=== PATIENT | male | born 1940 | race Caucasian/White ===

== ENCOUNTER → 2016-11-30 | Outpatient (CLI) | payer MEDICARE, BC ==
[~2016-11-30] MED LIST: ASPIRIN (CHILDR81 MG PO; ATENOLOL25 MG PO; BACTRIM DS1 TAB PO; CELEXA10 MG PO; CITALOPRAM HBR10 MG PO; COLACE100 MG PO; COUMADIN ** IA5 MG PO; DELTASONE20 MG PO; FLONASE 50 MCG/16 GM NOSE; FLUNISOLIDE25 ML NOSE; GLUCOPHAGE500 MG PO; JANUVIA 100 MG100 MG PO; LEVAQUIN750 MG PO; LOPRESSOR25 MG PO; MIRALAX17 GM PO; NAMENDA5 MG PO; NORVASC2.5 MG PO; OXYGEN M-15 NS; PLAVIX75 MG PO; PROTONIX40 MG PO; TYLENOL/COD#31 TAB PO; VITAMIN B-12500 MCG PO; XALATAN2.5 ML OPHTH; ZOCOR40 MG PO; ZYRTEC10 MG PO
== END | disposition disaster alternative care site (69) ==
LOC: GRAD 09:34
DX: J32.2 Chronic ethmoidal sinusitis (principal); K11.6 Mucocele of salivary gland; J34.89 Other specified disorders of nose and nasal sinuses

== ENCOUNTER 2017-02-22 17:15 | Inpatient (IN) | payer MEDICARE, BC ==
[~2017-02-22] VITALS: Ht 170.2 cm; Wt 81.4 kg
--- NOTE | ~2017-02-22 | DS ---
PATIENT'S NAME: ERIK SEARS [facility] AGE: 76 Y [address] ROOM: [place] [address] LOCATION: GPCU ADMIT DATE: 02/22/2017 Discharge Summary DISCHARGE DATE: 03/01/2017 FAMILY PHYSICIAN: Balta Castaneda MD ATTENDING PHYSICIAN: Naun Colby PRIMARY DIAGNOSES: 1. Complicated urinary tract infection, Klebsiella oxytoca. 2. Acute encephalopathy. 3. Coronary artery disease. 4. Right lower quadrant abdominal pain with abnormal CT. 5. Paroxysmal atrial fibrillation, on long-term anticoagulation with warfarin. 6. Diabetes mellitus type 2. 7. Chest pain, noncardiac. 8. Bradycardia. 9. Rash, drug reaction secondary to Januvia. 10. Obstructive sleep apnea. 11. Gastroesophageal reflux disease. OPERATIONS/PROCEDURES: CT scan of the abdomen and pelvis was obtained on 02/22/2017 demonstrating thickening in the ascending colon, nonobstructive adynamic ileus, and a 3.2 cm infrarenal abdominal aortic aneurysm. CT scan of the brain obtained on 02/23/2017 was negative for any acute intracranial process. Lexiscan stress test performed on 02/26/2017 was positive for inducible ischemia. Left heart catheterization performed on 02/27/[address] Martha Salazar negative for any occlusive disease. Colonoscopy performed on 02/27/2017, negative. HISTORY OF PRESENTING ILLNESS/REASON FOR ADMISSION: Please refer to the H and P dictated on 02/22/2017. HOSPITAL COURSE: The patient was admitted to the hospital as noted above with a presumptive diagnosis of fever and encephalopathy. He also presented with a rash and there was preliminary consideration for tick-borne illness. 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 He was treated with doxycycline as well as Levaquin. A variety of diagnostic studies were performed as outlined above. He did have consultation by Gastroenterology and Cardiology. He was recommended to undergo colonoscopy and cardiac stress testing. His cardiac stress test was deemed to be positive and left heart catheterization was also recommended. It was decided to proceed with colonoscopy first and then subsequently left heart catheterization on 02/27/2017. PATIENT'S NAME: ERIK SEARS [facility] AGE: 76 Y [address] ROOM: [place] [address] LOCATION: GPCU ADMIT DATE: 02/22/2017 Discharge Summary DISCHARGE DATE: 03/01/2017 FAMILY PHYSICIAN: Balta Castaneda MD ATTENDING PHYSICIAN: Naun Colby Ultimately, his urine cultures grew Klebsiella. He was maintained on levofloxacin and his condition improved. The remainder of his cardiac workup proceeded without any complications. He is recommended for medical therapy. His medical management was adjusted. Additionally colonoscopy failed to reveal any significant colon pathology and clinical followup was recommended. It was suggested that he could have repeat CT again in 1 month. The patient's anticoagulant was held in anticipation of colonoscopy and left heart catheterization. He was initially bridged with Lovenox, but as his INR resolved, the Lovenox was discontinued. It was felt he could go home on his home dose of warfarin and plan for close clinical follow up with Dr. Castaneda. The rash that he had presented with was felt to have been a drug rash secondary to Januvia. The doxycycline was discontinued and subsequently Moultrie spotted fever serology was negative. By the end of 7th day of his hospital stay, it was felt that he would be stable enough for discharge to home with plans for close clinical followup with Dr. Castaneda as well as well as outpatient followup with Cardiology and event monitor for two weeks. DISCHARGE INSTRUCTIONS: DIET: ADA 2000 calorie per day as tolerated. ACTIVITIES: As tolerated. MEDICATIONS: 1. Amlodipine 2.5 mg p.o. daily. 2. Aspirin 81 mg p.o. daily. 3. Citalopram 10 mg p.o. q.a.m. 4. Fluticasone nasal spray 2 sprays each nostril b.i.d. 5. Latanoprost ophthalmic drops one drop each eye at h.s. 6. Levofloxacin 750 mg p.o. q.h.s. x2 more days. 7. Metoprolol 12.5 mg p.o. b.i.d. 8. Protonix 40 mg p.o. daily. 9. Simvastatin 40 mg p.o. q.h.s. 10. Coumadin 5 mg p.o. q.h.s. 11. Vitamin B12, 500 mg p.o. daily. 12. Oxygen 1 L per nasal cannula at h.s. FOLLOWUP: He will follow up with Dr. Castaneda in 4 days on Sunday. He will have repeat PT and INR on Sunday. He will have a 2-week event monitor placed on the date of discharge. He is going to follow up with his primary mold sprayer Dr. Dai in 2 weeks. PATIENT'S NAME: ERIK SEARS [facility] AGE: 76 Y [address] ROOM: [id number] [place], [place] [address] [facility] ADMIT DATE: 02/22/2017 Discharge Summary DISCHARGE DATE: 03/01/2017 FAMILY PHYSICIAN: Balta Castaneda MD ATTENDING PHYSICIAN: Naun Colby CONDITION ON DISCHARGE: Fair. TIME SPENT: Total time spent on discharge process 45 minutes. SAVI J MD DIONE CHOUDHURY/darcy /[id number] d: 03/02/17 0543 t: 03/15/17 1812, DISCHARGE SUMMARY
--- NOTE | ~2017-02-22 | CON ---
PATIENT'S NAME: ERIK SEARS [facility] AGE: 76 Y [address] ROOM: [place] [address] LOCATION: GPCU ADMIT DATE: 02/22/2017 Consultation DISCHARGE DATE: FAMILY PHYSICIAN: HENRY OWEN MD ATTENDING PHYSICIAN: VIRGINIA MACDONALD REFERRING PHYSICIAN: RUBEN BROWN REASON FOR CONSULTATION: This is a 75-year-old gentleman who was seen for evaluation of anemia. He was scheduled to have colonoscopy but because of his weakness and dizzy spells, he was admitted to the hospital. He has had periods of confusion, disorientation, and lightheadedness. He noticed numbness and tingling in his fingers. There is no history of trauma or bumping his head. He did not have any fall. Denies any seizure-like activity. His CT scan of the head showed some lacunar infarct, which was stable from the previous CT scan. CT of the abdomen and pelvis had showed some thickening of the cecum and ascending colon with adjacent mesenteric inflammatory changes. There is a differential between colonic neoplasm and focal colitis. Therefore, a colonoscopy was suggested. PAST MEDICAL HISTORY: Significant for coronary artery disease, CABG, diabetes mellitus, hypertension, hyperlipidemia, obstructive sleep apnea, arthritis, gastroesophageal reflux disease and headaches. ALLERGIES: TO PENICILLIN, POSSIBILITY OF ALLERGY TO CONTRAST DYE. PAST SURGICAL HISTORY: Cholecystectomy 2010 and kidney stone removal in 2014. REVIEW OF SYSTEM: A 10-point review of system was negative other than mentioned above. PHYSICAL EXAMINATION: GENERAL: Reveals a well-developed, pleasant male, who is in no acute discomfort. HEAD: Normocephalic, atraumatic. NECK: Supple. No lymphadenopathy. CHEST: Clear to palpation, percussion, and auscultation. VITAL SIGNS: Showed blood pressure is 128/62, pulse is 58 per minute, and temperature is 98.8 degrees Fahrenheit. NEUROLOGIC: Cranial nerves II through XII intact. Motor and sensory systems intact. He walks to the bathroom without difficulty with a slight shuffling gait. ABDOMEN: Soft, is nontender. No hepatosplenomegaly. No ascites. PATIENT'S NAME: ERIK SEARS [facility] AGE: 76 Y [address] ROOM: [place] [address] LOCATION: GPCU ADMIT DATE: 02/22/2017 Consultation DISCHARGE DATE: FAMILY PHYSICIAN: HENRY OWEN MD ATTENDING PHYSICIAN: VIRGINIA MACDONALD GENITOURINARY: Bladder is not full. Hypogastrium is not tender. LABORATORY DATA: Showed his pH is 7.48, PO2 of 51, PCO2 of 33. Electrolytes were normal. Chloride 112, creatinine 0.8, BUN 14. Total protein 5.7, albumin 2.6. Hemoglobin 12.9, hematocrit 38.2, and platelet 177. Prothrombin time 28.8 and INR is 2.72. Fibrinogen level is 485. CT scan of the abdomen as mentioned above. ASSESSMENT: This gentleman has a right colonic abnormality. We will go ahead and plan him for a colonoscopy. Preparation was started yesterday. We appreciate sharing care of this patient. MD PIPE KING/darcy /[id number] d: 02/24/17 1336 t: 02/27/17 1514, CONSULTATION REPORT
--- NOTE | ~2017-02-22 | CON ---
PATIENT'S NAME: ERIK BREAUX [facility] AGE: 76 Y [address] ROOM: [place] [address] LOCATION: GPCU ADMIT DATE: 02/22/2017 Consultation DISCHARGE DATE: FAMILY PHYSICIAN: HENRY OWEN MD ATTENDING PHYSICIAN: VIRGINIA MACDONALD REFERRING PHYSICIAN: RUBEN BROWN REFERRING PHYSICIAN: Dr. Solano. REASON FOR CONSULT: Bradycardia. HISTORY OF PRESENT ILLNESS: Mr. Breaux is a pleasant 76-year-old male with, who initially presented to the Emergency Department with complaints of fever and rash. He had been recently started on Januvia. The patient has been on antibiotics and his rash has been subsiding. The patient was noted to have episodes of sinus bradycardia on telemetry and hence Cardiology was consulted. The patient is being also worked up for possible colonoscopy and biopsy. The patient denied any chest pain. No history of shortness of breath. He stated that he goes to gym 3 times a week and does work out for an hour each time without any symptoms. REVIEW OF SYSTEMS: The patient stated that he has mild diminution in vision both eyes. No history of nausea or vomiting. He has occasional diarrhea. No history of constipation. No history of chest pain, palpitations, or shortness of breath on exertion. The patient stated that he had fever along with rash. No history of recent memory loss. Review of other systems is essentially negative. PAST MEDICAL HISTORY: History of congestive heart failure; obstructive sleep apnea on BiPAP; history of ischemic stroke; dementia; coronary artery disease, status post stent placement and coronary artery bypass surgery in 2011; diabetes mellitus; hypertension; paroxysmal atrial fibrillation on long-term anticoagulation; glaucoma; dyslipidemia; and asthma. PAST SURGICAL HISTORY: Coronary artery bypass surgery in 1981 and 2011, cholecystectomy, bilateral cataract surgery, and kidney stone removal in 2014. FAMILY HISTORY: History of cirrhosis of liver and his mother had cancer. No family history of premature coronary artery disease. PATIENT'S NAME: ERIK BREAUX [facility] AGE: 76 Y [address] ROOM: [place] [address] LOCATION: GPCU ADMIT DATE: 02/22/2017 Consultation DISCHARGE DATE: FAMILY PHYSICIAN: HENRY OWEN MD ATTENDING PHYSICIAN: VIRGINIA MACDONALD SOCIAL HISTORY: Nonalcoholic. Nonsmoker. The patient lives with his . MEDICATIONS: Current cardiac medications include: 1. Warfarin. 2. Simvastatin. 3. The patient was on atenolol, which has been discontinued due to bradycardia. 4. Other medications per MAR. PHYSICAL EXAMINATION: VITAL SIGNS: His heart rate is 58 beats per minute, respiratory rate 18, blood pressure 128/62, temperature 98.8. HEENT: His head is atraumatic and normocephalic. No pallor is present. Tongue is moist. NECK: No significant jugular venous distention is present. CARDIOVASCULAR: S1 and S2 are audible. They are irregular in rate and rhythm. Grade 2/6 soft systolic murmur is audible over the precordium. CHEST: Chest is clear to auscultation. ABDOMEN: Abdomen is soft, nontender. The patient noticed mild discomfort on pressing in left lower quadrant. Bowel sounds are present. EXTREMITIES: Showed mild pedal edema bilaterally. NEUROLOGIC: The patient is awake, alert, and oriented. SKIN: The patient has mild erythematous rash over his lower extremities. LABORATORY DATA: Sodium 145, potassium 4.1, chloride 112, CO2 of 23, glucose 163, calcium 8.1, BUN 14, creatinine 0.8, albumin 2.6, magnesium 1.9. ProBNP 1730. TSH 3.4. Free T4 1.2. White blood cell count 12.9, hemoglobin 12.9, platelet count 177. His echocardiogram showed normal left ventricular systolic function. His EKG showed sinus bradycardia with sinus arrhythmia at 56 beats per minute. On reviewing telemetry, the lowest heart rate was noted to be 46 beats per minute. Mostly the heart rate is in 60 to 80 beats per. ASSESSMENT AND PLAN: 1. Bradycardia. The patient's bradycardia is asymptomatic. He is physically active and stated that he goes to the gym 3 times a week and works out for about an hour without any symptoms. The patient had been on atenolol, which was recently discontinued due to bradycardia. We will continue to monitor on telemetry. We will also monitor his heart rate while he is physically active to look for any chronotropic incompetence. His history is not suggestive of any chronotropic incompetence. PATIENT'S NAME: ERIK BREAUX [facility] AGE: 76 Y [address] ROOM: [place] [address] [facility] ADMIT DATE: 02/22/2017 Consultation DISCHARGE DATE: FAMILY PHYSICIAN: HENRY OWEN MD ATTENDING PHYSICIAN: VIRGINIA MACDONALD 2. Coronary artery disease, status post coronary artery bypass graft. Continue statins. Consider addition of aspirin. 3. History of paroxysmal atrial fibrillation. We will continue anticoagulation. The patient is on Coumadin. The Coumadin is going to be held for colonoscopy with heparin bridging. Post colonoscopy, we will reinitiate anticoagulation. 4. Rash, management per hospitalist team. 5. History of abnormal abdominal CT. The patient is being scheduled for colonoscopy. The plan of care was discussed with the patient, his , and his son, the nursing staff, and Dr. Solano, Gastroenterology. Thank you for allowing us in taking part in the care of this pleasant patient. MD GERSON AGGARWAL/darcy /[id number] d: 02/24/17 1404 t: 03/15/17 1723, CONSULTATION REPORT
--- NOTE | ~2017-02-22 | ER ---
PATIENT'S NAME: ERIK SEARS [facility] AGE: 76 Y [address] ROOM: [place] [address] LOCATION: GPCU ADMIT DATE: 02/22/2017 ER/Outpatient Report DISCHARGE DATE: FAMILY PHYSICIAN: HENRY OWEN MD ATTENDING PHYSICIAN: VIRGINIA MACDONALD Time of arrival: 1715 hours. Time of evaluation: 1715 hours. CHIEF COMPLAINT: Fever. HISTORY OF PRESENT ILLNESS: The patient is a 76-year-old male, who presents to emergency department today with a chief complaint of fever and rash. He reports that the fevers started Sunday, but a rash just started yesterday. He showed his family finally today. He was started on some prednisone after he called his primary care doctor. The patient was recently started on Januvia from past 9 days. He has had some loose stools for the past couple days of at least 2 per day. He has also had some generalized weakness and has progressive worsening. Denies any chest pain. No shortness of breath. No abdominal pain. PAST MEDICAL HISTORY: 1. Congestive diastolic heart failure. 2. Obstructive sleep apnea, on BiPAP in 3 L nasal cannula at night. 3. History of ischemic stroke. 4. Dementia. 5. Coronary artery disease with history of stents. 6. CABG. 7. Diabetes mellitus type 2. 8. Hypertension. 9. Asthma. 10. Paroxysmal atrial fibrillation, on long-term anticoagulation. 11. Dyslipidemia. 12. Glaucoma. PAST SURGICAL HISTORY: 1. CABG in 1981. 2. Cardiac stents 1986 and 2004. 3. Cholecystectomy. 4. Bilateral cataracts surgery. 5. Repeat CABG in 2011. 6. Kidney stone removal 2014. FAMILY HISTORY: PATIENT'S NAME: ERIK SEARS [facility] AGE: 76 Y [address] 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 Father and mother with cancer in the pituitary gland. SOCIAL HISTORY: The patient denies any tobacco, alcohol, or illicit drug use. ALLERGIES: SULFA, RED EYE CONTRAST DYE. MEDICATIONS: Please see list. PRIMARY CARE DOCTORS: Dr. Owen. REVIEW OF SYSTEMS: All systems are reviewed by myself and negative with the exception of discussed in HPI and past medical history. PHYSICAL EXAMINATION: VITAL SIGNS: Weight 83.4 kg. Blood pressure 128/66, pulse 108, respiratory rate 16, temperature 101.4, oxygen saturation 92% on room. GENERAL: The patient is a 76-year-old male, who appears stated age. Well developed and well nourished. HEENT: Head: Normocephalic and atraumatic. Pupils are equal, round, and reactive to light. Extraocular motions are intact. Sclerae and conjunctivae are clear, not icteric. Oropharynx is clear. There is no oral lesions noted. Mucous membranes are moist. NECK: Supple. There is no nuchal rigidity. CARDIOVASCULAR: Tachycardic. No murmurs, rubs, or gallops. LUNGS: Clear to auscultation bilaterally. No wheezes, rales, or rhonchi. ABDOMEN: Soft, nontender, and nondistended. No rebound, rigidity, or guarding. MUSCULOSKELETAL: The patient moves all 4 extremities. SKIN: The patient does have area of petechiae and purpuric lesion noted to the bilateral lower extremities up into the inguinal region. There is no other rashes, excoriations, bullae, or raised lesions noted. LABORATORY DATA AND X-RAYS: Labs and x-rays are pending at time of transfer of care. IMPRESSION: 1. Petechial and pruritic rash. 2. Acute febrile illness. 3. Please see Dr. Medrano's dictation. PATIENT'S NAME: ERIK SEARS [facility] AGE: 76 Y [address] ROOM: [id number] [place] [address] LOCATION: GPCU ADMIT DATE: 02/22/2017 ER/Outpatient Report DISCHARGE DATE: FAMILY PHYSICIAN: HENRY OWEN MD ATTENDING PHYSICIAN: VIRGINIA MACDONALD EMERGENCY DEPARTMENT COURSE: The patient brought back to the examination room. Seen and evaluated by myself. IV is established. Laboratory analysis and imaging are obtained and pending at time of transfer of care. The patient is initiated on a liter of normal saline. He is given 1 g of Tylenol. He is also given 125 mg of Solu- Medrol IV. I have discussed the case with Dr. Medrano at shift change. He has assumed care. Please see his dictation for further. DO PINKY MCCALLUM/modl /[id number] d: 02/23/17 1024 t: 02/27/17 0924, OUTPATIENT REPORT
--- NOTE | ~2017-02-22 | HP ---
PATIENT'S NAME: ERIK SEARS [facility] AGE: 76 Y [address] ROOM: [place] [address] [facility] AD[facility] DATE: 02/22/2017 History & Physical DISCHARGE DATE: FAMILY PHYSICIAN: HENRY OWEN MD ATTENDING PHYSICIAN: VIRGINIA MACDONALD DATE OF SERVICE: ADDENDUM: The addendum is that for his on and off confusion after the stroke. I am going to get a head CT of the brain without contrast. I do not think the patient has stroke; however, further plan will depend on clinical course and MRI of the brain could be obtained if necessary. Again, further plan will depend on the clinical course, and on the CT of the brain without contrast finding first. Currently, on my neurologic exam, the patient does not seem to have any evidence of stroke. The patient is oriented x3 right now with me. There is no confusion at the moment based on my examination. The patient does have a history of a vascular dementia consistent with a prior stroke and he is having this wax and wane confusion described by the family member, which at the moment the patient is not having any confusion. Further plan depends on clinical course. MD MAHAMED RIVERS/darcy /[id number] D: 310 T: 635 HISTORY & PHYSICAL
--- NOTE | ~2017-02-22 | ER ---
PATIENT'S NAME: ERIK SEARS [facility] AGE: 76 Y [address] ROOM: [address] [address] [facility] ADMIT DATE: 02/22/2017 ER/Outpatient Report DISCHARGE DATE: FAMILY PHYSICIAN: HENRY OWEN MD ATTENDING PHYSICIAN: VIRGINIA MACDONALD Time of Arrival: Admission date and time documented on the medical record. Time of Evaluation: I saw the patient when I came on shift change at 1815 hours. CHIEF COMPLAINT: Fever and skin rash. HISTORY OF PRESENT ILLNESS: This patient is a 76-year-old male, who presented to the emergency room with generalized weakness, fever, and skin rash. Initially, saw Dr. Araujo. See Dr. Araujo's dictation in regard to this patient's admission. Dr. Araujo transferred the patient's care over to me at shift change. I followed up with the patient's laboratory and x-ray study results, final diagnosis, and treatment plan. The patient's illness started on Sunday. He started with a rash on his lower extremities that moved up to his abdomen and chest. The patient was given Solu-Medrol 125 mg IV here in the emergency room and his rash on his abdomen, chest, and upper extremities resolved. Did have a little bit of pruritus with this rash. Was lightheaded and dizzy, but had no syncope or near syncope. No headache or eyes, ears, nose, throat, neck, or spine pain. No chest pain or shortness of breath. No abdominal pain. Has had a lot of diarrhea. Some nausea, but no vomiting. No joint swelling, redness, or pain. Does have a skin rash. Does have yig-tekkrsx-sfnbqsoqv diabetes. No other endocrine problems. Has a past history of lacunar infarcts, CVA, without sequelae. Does have some dementia. No psych issues. HOME MEDICATIONS: See attached medication list. ALLERGIES: PENICILLIN, SULFA, CONTRAST DYE, RED DYE. SOCIAL HISTORY: Nonsmoker, nondrinker. SIGNIFICANT PAST MEDICAL HISTORY: Atherosclerotic ischemic heart disease with coronary artery disease; non- insulin-dependent diabetes mellitus type 2; obstructive sleep apnea; COPD, asthmatic type; hypertension; nephrolithiasis; cholecystitis; CVA with lacunar infarct; dementia; dyslipidemia; degenerative osteoarthritis; headaches; and PATIENT'S NAME: ERIK SEARS [facility] AGE: 76 Y [address] ROOM: [address] [address] LOCATION: [facility] ADMIT DATE: 02/22/2017 ER/Outpatient Report DISCHARGE DATE: FAMILY PHYSICIAN: HENRY OWEN MD ATTENDING PHYSICIAN: VIRGINIA MACDONALD gastroesophageal reflux. OPERATIONS: Tonsillectomy, esophagogastroduodenoscopy, cataract extraction, coronary artery bypass graft, cardiac catheterization with PTCA and stenting, cholecystectomy, and cystoscopy with ureteral stent and stone extraction. REVIEW OF SYSTEMS: All systems reviewed by me are negative with the exception of those discussed in the history of present illness. PHYSICAL EXAMINATION: VITAL SIGNS: Temperature 101.4, tympanic; pulse 108; respirations 16; blood pressure 128/66; and O2 saturation on room air is 92%. HEAD: Normocephalic. EYES: Extraocular muscles intact. PERRL. Sclerae and conjunctivae clear, nonicteric. EARS, NOSE, AND THROAT: Clear. Mucous membranes moist. NECK: No nuchal rigidity. No thyromegaly or cervical adenopathy. No tenderness. No carotid bruits. SPINE: Negative. LUNGS: Clear. No rales, rhonchi, or wheezes. HEART: Regular. Pulses palpable. When I saw the patient, just the rash had dissipated. He had a little bit rash on his biceps muscle of his right upper arm. Otherwise, no other rash on his trunk, back, chest, upper extremities, face, and neck. NEURO: Cranial nerves intact. No lateralizing signs. The patient is awake, cooperative. Motor and sensory intact. SKIN: The patient has rash on his lower extremities, purpura type of rash. No excoriations. No raised lesions. No vesicles. No bullae. IMAGING DATA: EKG showed sinus rhythm, right bundle. No acute ST elevation, ischemic change, or arrhythmia. Chest x-ray is still pending. LABORATORY DATA: ProBNP was 660. Urine showed 10 to 20 whites, 0 to 2 reds, 0 to 2 epithelial cells, moderate bacteria, 4+ mucus per high-powered field, negative nitrites. Culture pending. Blood cultures x2 drawn, results pending. White count 11,800, 84 segs, 8 bands, 3 lymphs, 2 monos, 2 eos, 1 baso; hemoglobin is 14.8; hematocrit 44.9; platelet count is 181,000. Sed rate was elevated at 38. PTT was 52, protime was 36.2 with an INR of 3.41. CRP was 8.11. Thyroid tests were normal. CMS was normal except for a low CO2 content of 21, elevated glucose 142, CPK was 83. Bvsnt-qb-rxwb cardiac enzymes were normal. Procalcitonin was 1.86. Lactate was 2.4. Venous pH was 7.48. Respiratory PATIENT'S NAME: ERIK SEARS [facility] AGE: 76 Y [address] ROOM: [address] [place], [place] [address] LOCATION: [facility] ADMIT DATE: 02/22/2017 ER/Outpatient Report DISCHARGE DATE: FAMILY PHYSICIAN: HENRY OWEN MD ATTENDING PHYSICIAN: VIRGINIA MACDONALD panel was negative. D-dimer 0.93. Fecal white cells were few. Occult blood negative on stool. EMERGENCY DEPARTMENT COURSE: In view that this patient looks like possible sepsis, we did start the patient on cefepime 2 g IV, vancomycin IV, and Levaquin 750 mg IV here in the emergency room. I did start the patient on aggressive IV normal saline, fluids; gave him a total of 2500 here in the emergency department. He was not in shock, maintained a normal blood pressure. He had no mental status changes. IMPRESSION: 1. Sepsis, etiology uncertain. 2. Nonspecific skin rash, etiology uncertain. 3. Diarrheal illness, etiology uncertain. Culture pending. 4. Tzq-fdmwbwg-ahyareoha diabetes mellitus type 2. 5. Obstructive sleep apnea. 6. Chronic obstructive pulmonary disease, asthmatic type. 7. Hypertension. 8. Atherosclerotic ischemic heart disease with coronary artery disease. 9. Mild dementia. 10. Dyslipidemia. PLAN: Discussed the patient with Dr. Macdonald, hospitalist. Dr. Macdonald is coming to the emergency room to evaluate the patient. We will admit the patient to the hospital for further evaluation. Sepsis start time was 1930 hours. Discussion ensued with the patient and his family regarding my findings and recommendations, they understand. Accumulated critical care time 40 minutes. KRYS JAVIER MD SDS/modl /[id number] d: 02/23/17 0424 t: 02/28/17 1904, OUTPATIENT REPORT
--- NOTE | ~2017-02-22 | ESTC ---
Cardiac Perfusion Imaging Demographics Patient Name ORION Savage Gender Male Patient Number [id number] Race Visit Number [id number] [place] [id number] Room Number G6301 Accession Number [id number] Height 67 inches Date of 1940 Weight 189 pounds Srini Interpreting GURWINDER Robles Date of study 02/26/2017 Physician Carol Thomas MD Supervising /ÁLVAROP Carol OSBORNE Technologist Anitha Milligan Ordering Physician Carol Milligan environmental test technician Stress ECG Reading Carol Nurse Jamel Bhatia Physician Srini Thomas MD Procedure Procedure Type: Nuclear Stress Test:Pharmacological, Lexiscan, Cardiolite Stress Test Procedure Start time: 02/26/2017 08:22 Indications: Shortness of breath. Risk Factors The patient risk factors include:prior PCI;prior CABG;hypercholesterolemia, hypertension, orally-treated diabetes mellitus, prior valve surgery/procedure and dyslipidemia. Conclusions Summary Perfusion Images: The overall quality of the study is fair, due to gastrointestinal tracer uptake. Left ventricular cavity is noted to be normal on the stress and normal on the rest images. There is no evidence of abnormal lung activity. The right ventricle is not visualized an cannot be assessed. Impression ECG portion of the lexiscan stress test is clinically negative for ischemia by diagnostic criteria. Myocardial perfusion imaging is moderately abnormal. The images reveal a partially reversible defect in the basal to mid inferolateral wall consistent with ischemia . TID ratio is 1.15. Overall left ventricular systolic function was normal. The lateral wall is hypokinetic. Calculated LVEF is 62%. This is a intermediate risk stress test. There are no previous studies for comparison . Stress Protocols Resting ECG Sinus rhythm with PACs and PVCs with RBBB Pre-stress physical exam: Patient assessed by Dr Medina prior to testing. Predicted HR: 142 bpm ECG Findings No ECG changes suggestive of ischemia. Arrhythmias Occasional PACs and PVCs Symptoms Mild dyspnea Stress Interpretation ECG portion of stress test is negative for ischemia by diagnostic criteria. Nuclear images are pending Imaging Results Summed scores - Summed stress score: 16 - Summed rest score: 9 - Summed difference score: 7 Stress ejection Ejection fraction:62 % EDV :92 ml ESV :35 ml Stroke volume :57 ml LV mass :139 gr Imaging Protocols Rest Stress Isotope:Tc99m Sestamibi IV Isotope: Tc99m Sestamibi IV Isotope dose:13.4 mCi Isotope dose:41.2 mCi Date:02/26/2017 08:10 Date:02/26/2017 09:25 Technique: SPECT Technique: Gated Supine SPECT Supine IV remains in place after procedure. Scan Time:30 minutes post injection Scan Time:45-60 minutes post injection Procedure Medications - Regadenoson (Lexiscan) 0.4 mg IV over 10-15 sec. I.V. 0.4 mg. Medical History Admission Data Admission date: 02/22/2017 Admission Time: 22:13 Hospital Status: Inpatient. Signatures dtt: EDWIN MITCHELL dtd: 02/26/17 0822 Physician Self Edit
--- NOTE | ~2017-02-22 | CATH ---
Cardiac Diagnostic Report Demographics Patient Name ORION Savage Gender Male Date of 1940 Age 76 year(s) Patient Number [id number] Date of Study 02/28/2017 Visit Number [id number] Room Number G63[address] [place] [id number] Ht 170.18 cm Wt 82.55 kg Referring Leonel Gifford MD Primary Physician Physician Performing [place] Secondary Physician Physician Martha KANG Diagnostic [facility] Assisting Physician Physician Martha KANG Interventional Physician Mortician Supplies Sales Representative Physician Findings and Conclusions Diagnostic Findings and Conclusion Critical [place] TVD. All 4 bypass grafts patent: SVG to bifurcating Diag, Ramus, RPDA and VALLEJO to LAD are patent, distal to anastomosis, there is a focal 40% lesion in [place] LAD. Diagnostic Recommendations Medical management. Patient will be discharged later today. Continue current medications. Patient has been instructed to not lift anything more than 5 pounds for 1 week. I will plan on seeing the patient back in 2 week(s). Aggressive risk factor management. Aggressive medical therapy for coronary artery disease. Optimization of medical therapy as an outpatient. 14 day event monitor for symptoms of dizziness and intermittent sinus bradycardia. Procedure Description The patient was brought to the diagnostic cardiac catheterization-EP laboratory in the fasting, non-sedated state. Informed consent was obtained in the written and verbal form after the risks and benefits were explained. The patient had no further questions and agreed to proceed. The planned puncture-incision site(s) were shaved and prepped with ChloraPrep and draped in the usual sterile manner. Conscious sedation, supplemental oxygen, and pain control medications were delivered by a registered nurse under physician guidance. Surface ECG rhythm, blood pressure measurement, and pulse oximetry were monitored throughout the procedure. Arterial access. The access site was infiltrated with lidocaine. The vessel was entered with the Seldinger technique. A sheath was advanced into the vessel and used for catheter placement. Selective left coronary angiography. A catheter was advanced into the left coronary vessel ostium under Fluoroscopic guidance. Contrast was injected by hand. Images were obtained in multiple projections. Selective right coronary angiography. A catheter was advanced into the right coronary vessel ostium under fluoroscopic guidance. Contrast was injected by hand. Images were obtained in multiple projections. Selective SVG to PDA angiography. A catheter was advanced into the graft proximal anastomosis under fluoroscopic guidance. Contrast was injected by hand. Images were obtained in multiple projections. Selective SVG to ramus angiography. A catheter was advanced into the graft proximal anastomosis under fluoroscopic guidance. Contrast was injected by hand. Images were obtained in multiple projections. Selective SVG to diagonal angiography. A catheter was advanced into the graft proximal anastomosis under fluoroscopic guidance. Contrast was injected by hand. Images were obtained in multiple projections. Selective VALLEJO graft angiography. A catheter was advanced into the left internal mammary graft ostium under fluoroscopic guidance. Contrast was injected by hand. Images were obtained in multiple projections. Arterial artery hemostasis was achieved. The patient was transferred to a regular nursing floor via cart accompanied by a nurse. The patient left the laboratory in stable condition. Diagnostic Cath Status: Urgent Procedure Procedure Type Diagnostic procedure:Angiography:, Coronary Angios w/Grafts Indications: Abnormal Stress Test. The procedure was explained in detail to the patient. Risks, complications and alternative treatments were reviewed. Written consent was obtained. Medications Reviewed with Patient prior to Procedure. Angiographic Findings Dominance: Mixed Cardiac Arteries and Lesion Findings LMCA: Lesion on LMCA: Mid subsection.30% stenosis . LAD: Lesion on Mid LAD: 100% stenosis . Lesion on 1st Diag: Ostial.90% stenosis . Lesion on Dist LAD: 60% stenosis . Comments:Distal to graft on [place] LAD LCx: Lesion on Prox CX: 70% stenosis . Lesion on 1st Ob Alexandra% stenosis . Comments:Subtotalled. RCA: Lesion on Prox RCA: 70% stenosis . Lesion on Mid RCA: 70% stenosis . Lesion on Dist RCA: 100% stenosis . Cardiac Grafts - There is a Vein graft that originates at the Aorta Right and attaches to the R PDA (Patent). - There is a VALLEJO graft that originates at the VALLEJO and attaches to the Dist LAD. - There is a Vein graft that originates at the Aorta Left and attaches to the 1st Diag (Bifurcating diagnostic diag patent). - There is a Vein graft that originates at the Aorta Left and attaches to the Ramus (Patent). Coronary Tree Procedure Data Procedure Date Date: 02/28/2017Start: 10:03 AMEnd: 10:32 AM Entry Locations - Retrograde Percutaneous access was performed through the Right Femoral artery (Primary location). A 6 Fr sheath was inserted. Hemostasis was successfully obtained using Angio-Seal STS PLUS (St. Olu). Closure Comments: Deployed by Dr. Irby. Procedure Medications Order and Administration + + + +-------+ !Time !Medication !Dosage !Route ! + + + +-------+ !02/28/2017 10:01 AM !Versed !1 mg !I.V. ! + + + +-------+ !02/28/2017 10:02 AM !Fentanyl !25 mcg !I.V. ! + + + +-------+ !02/28/2017 10:08 AM !Oxygen !2 l/min !NC ! + + + +-------+ Devices Used - A5 Fr. BS JL 4 Diag. Catheterwas used for:Left coronary angiography. - A5 Fr. BS JR 4 Diag. Catheterwas used for:Right coronary angiography. - A6 Fr. BS IMT Diag. Catheterwas used for:VALLEJO. Contrast Material - Isovue 91013 ml Fluoroscopy Time: Diagnostic: 10:06 minutes. Total: 10:06 minutes. Fluoroscopy Dose: Diagnostic: 588 mGy. Total: 588 mGy. Estimated Blood Loss: 15 ml. Medical History Performed Procedures and Imaging Results - Stress testing with SPECT MPIwas performed. Results were: Positive. Risk/Extent of ischemia was: Intermediate risk. Allergies - Contrast. - Sulfa. Risk Factors The patient risk factors include:prior PCI;prior CABG;cerebrovascular disease, hypercholesterolemia, hypertension, orally-treated diabetes mellitus, chronic lung disease, last creatinine: 0.7 mg/dl, creatinine clearance: 101.55 ml/min, prior valve surgery/procedure, dyslipidemia and prior heart failure . Admission Data Admission Date: 02/22/2017 Admission Time: 10:13 PM Admit Source: Emergency department Insurance Payors: Medicare. Admission Medications + +------+------+---------+---------+ + + !Medication !Dosage!Times !Last !Last !Administered !Comments ! ! ! !Per !Delivery !Delivery ! ! ! ! ! !Day !Date !Time ! ! ! + +------+------+---------+---------+ + + !Aspirin (any) ! ! ! ! !Yes ! ! + +------+------+---------+---------+ + + !Low Molecular ! ! ! ! !Yes ! ! !Weight Heparin! ! ! ! ! ! ! !(any) ! ! ! ! ! ! ! + +------+------+---------+---------+ + + !Beta Saurav ! ! ! ! !Yes ! ! !(any) ! ! ! ! ! ! ! + +------+------+---------+---------+ + + !Statin (any) ! ! ! ! !Yes ! ! + +------+------+---------+---------+ + + Clinical Evaluation Leading to Procedure - The patient's CAD presentation was assessed as: Unstable angina. - The patient's anginal syndrome during the past two weeks was assessed as: Class IV according to the [place] Cardiovascular Society Classification System (CCS). Anti-anginal medications were prescribed during the past two weeks. The medications are: Beta Blockers and Ca channel Blockers. - The patient has been in a state of heart failure within the past two weeks. Hemodynamics Condition: Rest O2 Consumption: Estimated: 215.01Heart Rate: 60 bpm Pressures (mmHg) +-----+ + !Site !Pressure ! +-----+ + !AO !127/73 (96) ! +-----+ + !AO !160/84 (113) ! +-----+ + Shunts Oxygen Values O2 Capacity 201.28 O2 Consumption 215.01 Signatures dtt: MARTHA MITCHELL dtd: 02/28/17 1003 Physician Self Edit
--- NOTE | ~2017-02-22 | ECHO ---
Transthoracic Echocardiography Report (TTE) Demographics Patient Name ERIK SEARS Date of Study 02/23/2017 Patient Number [id number] Visit Number [id number] Date of 1940 Room Number G6301 Accession Number [id number] Gender Male Age 76 year(s) Referring Leonel Gifford MD Immersion Metal Cleaner Mando Titus RVT, Physician RDCS Physician Interpreting Waltjayesergio Milligan Railroad Signal And Switch Operator Physician Supervising Ordering Physician Earnestine Elliott MD, MD/MLP Nurse Stress [employer] Cente[employer] And Edger Conclusions Contractility Score Summary Normal Left Ventricular contractility was noted. Summary The estimated left ventricular ejection fraction is 60-65%. Mild concentric left ventricular hypertrophy. Diastolic assessment reveals Grade I diastolic dysfunction. The left atrium is moderately dilated. Moderate mitral annular calcification. Mild mitral regurgitation by color Doppler. There is mild aortic regurgitation by color Doppler. Mild tricuspid regurgitation by color Doppler. Procedure Type of Study TTE procedure:2D Echocardiogram. Procedure Date Date: 02/23/2017 Start: 07:10 AM Study Location: Inpatient Portable Technical Quality: Adequate visualization Indications:Endocarditis and Fever of unknown origin. Appropriate Use Criteria: 8 Patient Status: Routine HR: 79 bpm BP: 140/66 mmHg M-Mode/2D Measurements LV Diastolic Dimension: 4.12 cm LV Systolic Dimension: 2.27 cm LV Septum Diastolic: 1.27 cm LV PW Diastolic: 1.25 cm AO Root Dimension: 2.8 cm Cardiac Output: 11.02 l/min LA Dimension: 3.1 cm LVOT: 2.3 cm RV Base: 3.82 cm LVOT VTI: 33.6 cm RV Mid: 3.01 cm LV Stroke volume: 139.53 ml TAPSE: 1.48 cm TDI-S': 9.98 cm/s Doppler Measurements AV Peak Velocity: 1.58 m/s MV Peak E-Wave: 1.21 m/s AV Peak Gradient: 9.99 mmHg MV Peak A-Wave: 1.52 m/s AV Mean Gradient: 7 mmHg MV E/A Ratio: 0.8 LVOT Peak Velocity: 1.36 m/s MV P1/2t: 70 msec TR Gradient:23.62 mmHg PV Peak Velocity: 1.04 m/s Estimated RAP:5 mmHg PV Peak Gradient: 4.33 mmHg Estimated RVSP: 29 mmHg Estimated PASP: 28.62 mmHg E' Septal Velocity: 0.06 m/s A' Septal Velocity: 0.12 m/s E' Lateral Velocity: 0.09 m/s A' Lateral Velocity: 0.13 m/s Findings Left Ventricle Mild concentric left ventricular hypertrophy. Diastolic assessment reveals Grade I diastolic dysfunction. Mild increased LVOT gradient noted. Mild left ventricular cavity obliteration. Right Ventricle Normal right ventricle structure and function. Left Atrium The left atrium is moderately dilated. Right Atrium Normal right atrial size. IVC measures 1.65 cm with inspiratory collapse. Mitral Valve Moderate mitral annular calcification. Mild mitral regurgitation by color Doppler. Aortic Valve The aortic valve is mildly sclerotic. There is mild aortic regurgitation by color Doppler. Tricuspid Valve Mild tricuspid regurgitation by color Doppler. Estimated RV systolic pressure 27 mm hg Pericardial Effusion No evidence of pericardial effusion. Pleural Effusion No evidence of pleural effusion. Contractility Score LV regional wall motion:(0-Non visualized 1-Normal 2-Hypokinesis 3-Akinesis 4-Dyskinesis 5-Aneurysm) Signature dtt: ROJELIO ARNETT dtd: 02/23/17 0710 Physician Self Edit
--- NOTE | ~2017-02-22 | CON ---
PATIENT'S NAME: ERIK SEARS [facility] AGE: 76 Y [address] ROOM: [address] [address] [facility] AD[facility] DATE: 02/22/2017 Consultation DISCHARGE DATE: FAMILY PHYSICIAN: HENRY OWEN MD ATTENDING PHYSICIAN: VIRGINIA MACDONALD REFERRING PHYSICIAN: RUBEN BROWN He will be prepared for colonoscopy and during the night his heart rate dropped with pauses and Dr. Magallon postponed his colonoscopy. His heart rate had come down on the record here from 48 to 42 and therefore it was postponed. He was evaluated by Dr. Medina from cardiology point of view and it was felt that his heart rate had picked up to 80 per minute and he was going to be further evaluated by Cardiology and felt that it was safer to proceed with a colonoscopy. His INR was 2.72, therefore the Coumadin would be stopped and he would be placed with Lovenox until Sunday and we will prepare him for colonoscopy on Sunday and proceed with colonoscopy on Sunday. Plan was discussed with patient, Dr. Medina, Dr. Solano and patient's family and they are all in agreement. I appreciate sharing care of this patient. MD PIPE KING/darcy /[id number] d: 02/24/17 1344 t: 02/27/17 1517, CONSULTATION REPORT
--- NOTE | ~2017-02-22 | HP ---
PATIENT'S NAME: ERIK SEARS [facility] AGE: 76 Y [address] ROOM: [address] [place], [place] [address] LOCATION: GPCU ADMIT DATE: 02/22/2017 History & Physical DISCHARGE DATE: FAMILY PHYSICIAN: HENRY OWEN MD ATTENDING PHYSICIAN: VIRGINIA MACDONALD DATE OF SERVICE: CHIEF COMPLAINT: Fever, rash, altered mental status, and generalized weakness. HISTORY OF PRESENT ILLNESS: This is a 76-year-old male who says that since he had a stroke last year, he has been having this on and off confusion what the describes as the patient will be forgetful and also will ask questions that did not make sense such as he will ask "what time was the republican?" where there was no republican. He will also ask "when the newspaper will get here?" when there was no newspaper delivered to the house. He is having this on and off confusion since the stroke last year. The first complaint is that the noticed that the patient has been having more confusion recently, but she denies any slurred speech or any facial droop or numbness. The problem is that he is more forgetful than he used to be, but sometimes he will behave normal, so this a wax and wane mental status change which got worse in the last few weeks. The second complaint is that the patient was recently put on Januvia for roughly 9 days for his diabetes, and the patient has noticed petechial rash that started in bilateral feet that happened since Sunday which was yesterday evening, and today, the rash has progressed up to the bilateral knees and also to the bilateral anterior chest. He says the rash is a little bit itchy. The rash is a petechial rash and does not viry. The third complaint is that for the last 2 days he has been having some chills, and at home, his temperature was 102.6. The fourth complaint is that he had been having some loose stools since 2 days ago about 1-2 episodes per day, but today, he has not had any bowel movement. The fifth complaint is that for the last week he has been having some generalized weakness as well. The patient was told by the primary care physician to stop taking Januvia and was prescribed Benadryl and also prednisone 40 mg p.o. x1 which the patient took today; however, the rash did not improve, and because of the fever, the patient came here for evaluation. The patient also complained of some mild abdominal pain in the right lower quadrant for the last 2 days, but he denies any nausea or vomiting or any cough or chest pain or dyspnea. He denies any other complaints. The patient also denies any recent sick contact or travel outside the country or outside the city or any tick bite list to his knowledge. REVIEW OF SYSTEMS: PATIENT'S NAME: ERIK SEARS [facility] AGE: 76 Y [address] ROOM: [address] [place], [place] [address] [facility] AD[facility] DATE: 02/22/2017 History & Physical DISCHARGE DATE: FAMILY PHYSICIAN: HENRY OWEN MD ATTENDING PHYSICIAN: VIRGINIA MACDONALD As mentioned in history of present illness. All other systems were reviewed and they were negative except for those mentioned in the history of present illness. PAST MEDICAL HISTORY: 1. Chronic congestive diastolic heart failure. 2. Obstructive sleep apnea, on BiPAP at night and also on 3 L nasal cannula at all times during sleep. 3. Prior history of stroke, ischemic, last year in 2016 with residual deficits that the describes as easily forgetful and wax and wane mental status change, describes confusion. 4. Vascular dementia (Lewy body dementia). 5. Coronary artery disease, status post stents in the past, many years ago, and also status post CABG many years ago. 6. Diabetes type 2. 7. Hypertension. 8. Asthma. 9. Paroxysmal atrial fibrillation, on Coumadin. ALLERGIES: RED DYE, IV CONTRAST FOR THE STUDY AND ALSO FOR THE CARDIAC CATH CONTRACT WHERE THE PATIENT HAS ANAPHYLACTIC REACTION, AND SULFA WHICH CAUSES ANAPHYLAXIS WELL. THE RED DYE ALSO CAUSES ANAPHYLAXIS. THE PATIENT DENIES ANY ALLERGIES TO PENICILLIN. HOME MEDICATIONS: Currently is being reconciled. The patient does take Coumadin at home. SOCIAL HISTORY: The patient denies any cigarette or alcohol or any illegal drug use. PAST SURGICAL HISTORY: 1. Status post CABG back in 1981. 2. Status post cardiac stents placed many years ago back in 1986 and 2004. 3. Status post cholecystectomy. 4. Status post bilateral cataract surgery. 5. Status post another CABG in 2011. 6. Status post kidney stone removal back in 2014. FAMILY HISTORY: Father from liver cirrhosis, he was a heavy alcohol drinker. Mother from cancer in the pituitary gland at advanced age. PHYSICAL EXAMINATION: VITAL SIGNS: At the time of my dictation, temperature 99, heart rate 90, PATIENT'S NAME: ERIK SEARS [facility] AGE: 76 Y [address] ROOM: [address] [place], [place] [address] [facility] AD[facility] DATE: 02/22/2017 History & Physical DISCHARGE DATE: FAMILY PHYSICIAN: HENRY OWEN MD ATTENDING PHYSICIAN: VIRGINIA MACDONALD blood pressure 130/85, MAP of 79, respirations 14, saturation 97% on 2 L nasal cannula. GENERAL APPEARANCE: Alert and oriented x3, in no acute distress. The patient does not look acutely ill. HEENT: Pupils are equally round and reactive to light. Extraocular muscles are intact. Anicteric sclerae. Nasal turbinates are normal bilaterally. Dry oral mucosa. NECK: No JVD. CARDIOVASCULAR: Regular rate and rhythm. He has a faint murmur, grade 2. No rubs, no gallops. Normal S1, S2. RESPIRATORY: Clear to auscultation. No rales, no rhonchi, no crackles, no wheezing. ABDOMEN: Obese, mildly tender to palpation in the right lower quadrant. No rebound tenderness. No abdominal rigidity. Doherty sign negative. No mass. Bowel sounds are present. Soft. Nondistended. No ascites. EXTREMITIES: No edema in upper or lower extremities. SKIN: He has a petechial rash that is not blanchable in bilateral lower extremity, starting from the bilateral feet all the way up to the proximal bilateral thighs. This includes both anterior and posterior. No cyanosis, no ulcer. NEUROLOGIC: Grossly nonfocal. No slurred speech. No facial droop. Pronator drift negative. Babinski negative bilaterally. No slurred speech. MUSCULOSKELETAL: No joint pain. No muscle pain. Range of motion intact. There is no muscle weakness. There is no sensation loss. LABORATORY DATA: ABG showed pH 7.48, pCO2 of 33, pO2 of 51, bicarbonate 24.6, saturation 88%. Lactic acid 2.4. This was done on room air. Troponin less than 0.04. CPK 83. ProBNP 660. White blood cell 11.8, hemoglobin 14.8, hematocrit 44.9, MCV 92.4, platelets 181. Glucose 142, BUN 15, creatinine 1.0, sodium 139, potassium 3.8, chloride 107, bicarbonate 21, calcium 8.6. Total protein 6.8, albumin 3.0. AST 21, ALT 38, alkaline phosphatase 89, total bilirubin 0.7, anion gap 14.8, globulin 3.8. GFR more than 60. ESR 38. INR 3.41, PTT 52, fibrinogen 654. Urinalysis showed 100 leukocytes, negative glucose, negative ketone, negative nitrite, moderate bacteria, white blood cells of 10 to 20, red blood cells 0 to 2, blood 25. CK-MB less than 0.5. CRP 8.11. Free T4 of 1.2, TSH 3.4. Procalcitonin 1.86. D-dimer 0.93. IMAGING STUDIES: Chest x-ray on admission showed no acute cardiopulmonary process. CT of the abdomen and pelvis without contrast on admission, this is preliminary. and the preliminary report was read as a thickened cecal wall suspicious for malignancy. Recommend direct visualization. Mild adjacent inflammatory changes, but no evidence for appendicitis. Low-grade distal PATIENT'S NAME: ERIK SEARS [facility] AGE: 76 Y [address] ROOM: [place] [address] [facility] ADMIT DATE: 02/22/2017 History & Physical DISCHARGE DATE: FAMILY PHYSICIAN: HENRY OWEN MD ATTENDING PHYSICIAN: VIRGINIA MACDONALD small-bowel ileus. Nonobstructive bilateral nephrolithiasis. EKG on admission shows sinus rhythm at a heart rate of 92 beats per minute with right bundle-branch block, this is complete right bundle-branch block. QRS of 130 milliseconds, QTc 446, [place] 185. No acute ischemic changes. EMERGENCY ROOM COURSE: In the emergency room, the patient got 1 L normal saline bolus and also got 1 dose of Levaquin 750 mg and also got 1 dose of cefepime. ASSESSMENT AND PLAN: 1. Regarding his severe sepsis: Currently, the source is not clear. He does have evidence of pyuria, but the patient is asymptomatic. I will treat him for fever of unknown origin at the moment. I will give him broad-spectrum antibiotic coverage with IV vancomycin, IV meropenem, and IV Levaquin. This is a good coverage for broad coverage. I will follow up with the urine culture and blood culture. Given the patient does have a fever and also does have a murmur on examination, is a faint murmur, I will get an echo in the morning to rule out any vegetation, to rule out any bacterial endocarditis. Further plan depends on clinical course. I already filled out the severe sepsis protocol and is in the chart. I will check another lactic acid within 6 hours of my initial encounter with the patient per severe sepsis criteria. Further plan depends on clinical course. 2. Regarding his right lower quadrant abdominal pain: CT preliminary report showed thickened cecal wall suspicious for malignancy and recommended direct visualization with some mild adjacent inflammatory changes, but no evidence of appendicitis and low-grade distal small-bowel ileus, nonobstructive bilateral nephrolithiasis. This is a preliminary. I will follow up with the official report in the morning. GI consult could be consulted if the official report also show suspicion for malignancy. I will wait for the official report because sometimes the official report can have a different finding than the preliminary report. I have already spoken to the family member and the patient about this finding and they agree to wait for the final report first before deciding the next step for GI consult or not for possible colonoscopy. I cannot do IV contrast study because the patient is anaphylactic to IV contrast. 3. Regarding his petechial rash in bilateral lower extremities: I have a concern for Rickettsia given that the rash is petechial in nature. However, Rickettsia rash usually starts in the wrist and then in the palms and also in the ankles then soles, which the patient does not have. However, I am going to cover him with IV doxycycline given that Rickettsia can still have petechial rash which is one of the characteristics in the Rickettsia. I will cover him with IV doxycycline twice a day. I will also check serology for Rickettsia in the blood and also get an IFA for PATIENT'S NAME: ERIK SEARS [facility] AGE: 76 Y [address] ROOM: [address] [address] LOC[facility] ADMIT DATE: 02/22/2017 History & Physical DISCHARGE DATE: FAMILY PHYSICIAN: HENRY OWEN MD ATTENDING PHYSICIAN: VIRGINIA MACDONALD as well. For the rash, he already had improvement with IV Solu-Medrol given in the ED. I will continue with IV Solu-Medrol 60 mg b.i.d. which seems to help with the rash. I will stop the Januvia, not clear if this could be from Januvia or not. I will also give him one more dose of IV Benadryl and also IV Zantac. Further plan depends on clinical course. 4. Regarding his fever of unknown origin: As mentioned before, I will treat him empirically with a wide coverage. Get an echo in the morning in the setting of murmur. The rash could also mean that there could be concern for meningococcemia; however, the patient does not have any muscle pain which is the characteristic finding and a symptom in meningococcemia. I will watch the rash very closely, and currently, the rash is resolving with Solu-Medrol. Further plan depends on clinical course. 5. Regarding his severe sepsis with possible disseminated intravascular coagulation: The patient does not have thrombocytopenia at the moment. The patient does have a high D-dimer and also elevation of a fibrinogen and also PTT. INR is high because the patient is on Coumadin. The patient does not have anemia at the moment. I will do blood type and screen. I will treat this underlying severe sepsis before the patient goes into full-blown disseminated intravascular coagulation. I will check another disseminated intravascular coagulation panel in the morning to make sure the patient does not have thrombocytopenia. I will choose severe sepsis with the broad-spectrum antibiotics and IV fluids per the severe sepsis protocol. Further plan depends on clinical course. 6. Regarding his loose stool: I will check stool for Clostridium difficile study. If it is positive, I will start the Clostridium difficile protocol with oral vancomycin and also the oral Flagyl. 7. Regarding his prophylaxis: The patient is already on Coumadin INR is already therapeutic. For now, I will hold off on the Coumadin tonight given that there was a concern for progression into disseminated intravascular coagulation. I will wait for the blood work in the morning before deciding to resume Coumadin or not. Given the disseminated intravascular coagulation, one of the most feared complication will be bleeding. Further plan depends on clinical course and also on the blood work in the morning. Time spent in care on the day of admission 60 minutes including chart review, interviewing the patient, examining the patient, addressing all the questions and concerns that the patient and family member had, and I also went over the plan of care in detail in every step with the patient, the patient's son, the patient's at the bedside. I also answered all their questions to their satisfaction. Half of the time was spent on counseling, answering the questions, and going over the plan of care and the other half of the time with were spent on the physical examination and on the chart review. Further plan will depend on clinical course. PATIENT'S NAME: ERIK SEARS [facility] AGE: 76 Y [address] ROOM: [place] [address] LOCATION: [facility] ADMIT DATE: 02/22/2017 History & Physical DISCHARGE DATE: FAMILY PHYSICIAN: HENRY OWEN MD ATTENDING PHYSICIAN: VIRGINIA MACDONALD VIRGINIA MACDONALD MD CC/modl /[id number] D: [id number] T: [id number] HISTORY & PHYSICAL
[~2017-02-22 17:15] MED LIST changes: -CITALOPRAM HBR10 MG PO; -COUMADIN ** IA5 MG PO; -DELTASONE20 MG PO; -JANUVIA 100 MG100 MG PO; -LEVAQUIN750 MG PO; -LOPRESSOR25 MG PO; -NORVASC2.5 MG PO
[2017-02-22 17:50] LABS: BICARBONATE 24.6 mmol/L (18.0-23.0); LACTATE 2.4 mEq/L (0.50-1.60); PCO2 33 mmHg (35-45); PO2 51 mmHg (80-90)
[2017-02-22 17:52] LABS: HEMATOCRIT 44.9 % (37.0-53.0); HEMOGLOBIN 14.8 g/dL (11.0-16.0); MCH 30.5 pg (27.0-34.0); MCV 92.4 fl (83.0-98.0); MPV 10.8 fl (9.4-12.4); PLATELET COUNT 181 K/uL (150-450); RBC 4.86 M/uL (3.50-5.50); RDW-CV 14.4 % (11.9-14.6); WBC 11.8 K/uL (4.0-11.0)
[2017-02-22 18:05] LABS: INR - (THERAPEUTIC) 3.41 (0.92-1.07); PROTIME 36.2 SECONDS (9.8-11.4); PTT 52 SECONDS (25-32)
[2017-02-22 18:13] LABS: ALK PHOS 89 IU/L (33-138); ALT 38 IU/L (12-78); ANION GAP 14.8 (10.0-19.0); AST 21 IU/L (10-40); BLOOD UREA NITROGEN 15 mg/dL (6-24); CALCIUM 8.6 mg/dL (8.5-10.5); CHLORIDE 107 mMol/L (96-110); CO2 21 mMol/L (22-32); CPK 83 IU/L (35-332); ESTIMATED GFR (MDRD EQUATION) > 60; POTASSIUM 3.8 mMol/L (3.7-5.1); SODIUM 139 mMol/L (135-145); TOTAL BILIRUBIN 0.7 mg/dL (0.0-1.5); TOTAL PROTEIN 6.8 g/dL (6.0-8.4)
[2017-02-22 18:18] LABS: ABSOLUTE NEUTROPHIL CT (ANC) 10.9 K/uL (1.4-9.0); BANDED NEUTROPHIL # 0.9 K/uL (0.0-0.1); BANDED NEUTROPHILS % 8 %; LYMPHOCYTE # 0.4 K/uL (0.8-4.0); LYMPHOCYTE % 3 %; MONOCYTE # 0.2 K/uL (0.0-1.0); SEGMENTED NEUTROPHIL # 9.9 K/uL (1.4-9.0); SEGMENTED NEUTROPHIL % 84 %
[2017-02-22 19:08] LABS: BILIRUBIN URINE NEGATIVE (NEGATIVE); BLOOD URINE 25 /UL (NEGATIVE); COLOR URINE YELLOW (YELLOW); GLUCOSE URINE NEGATIVE (NEGATIVE); KETONE URINE NEGATIVE (NEGATIVE); LEUKOCYTES URINE 100 /UL (NEGATIVE); NITRITE URINE NEGATIVE (NEGATIVE); PROTEIN URINE 15 mg/dL (NEGATIVE); SPEC GRAVITY URINE 1.025 (1.003-1.035); TURBIDITY URINE 1+ (CLEAR); UROBILINOGEN URINE NORMAL (NORMAL)
[2017-02-22 19:18] LABS: RBC URINE 0-2 #/HPF (NEGATIVE)
[2017-02-22 19:19] LABS: BACTERIA URINE MODERATE (NEGATIVE); EPITHELIAL URINE 0-2 #/HPF (NEGATIVE); MUCUS URINE 4+ (NEGATIVE)
[2017-02-22] MEDS ORDERED: CITALOPRAM HBR10 MG PO (23:11)
[2017-02-22] MEDS ORDERED: COUMADIN ** IA5 MG PO (23:12)
--- NOTE | 2017-02-23 01:02 | NUR ---
THE PATIENT HAS REPORTED HAVING A LOW GRAD FEVER SINCE SUNDAY. HE HAS ALSO DEVELOPED A RASH THAT EXTENDED FROM HIS FEET TO HIS UPPER TORSO. OF NOTE HE WAS STARTED ON JUANUVIA [address] OWEN AT THE ONSET OF THESE SYMPTOMS AND WAS STARTED ON PREDNISIONE. HE THEN DEVELOPED A FEVER AT HOME OF 102.6 ON SUNDAY AND CALLED DR. OWEN WHO THEN TOLD HIM TO GO TO THE ER. BLOOD CULTURES DONE IN ER. PROMINENT RASH WAS NOTED AND HE WAS GIVEN IV SOLUMEDROL ALONG WITH CEFIMPIME, LEVAQUIN AND VANCO WAS STARTED. ALL VSS IN ER AND AFEBRILE. HE ARRIVED ON PCU AT 2245 WITH VANCO INFUSING. HE APPEARS IN NO ACUTE DISTRESS AND AMBULATES WITH MINIMAL ASSIST. AFEBRILE. HE STILL EXHIBITS A PETECHIAL TYPE RASH ON HI BL. IT HAS GREATLY IMPROVED PER FAMILY SINCE MEDIATIONS WERE GIVEN IN ER. PRO-KAN 1.86, LACTATE 2.4, WBC 11.8. CT OF ABDOMEN DONE AND WILL START SEPSIS PROTOCOL.
--- NOTE | 2017-02-23 04:52 | NUR ---
Significant Event: A/0 X 3, COOPERATIVE WITH CARES. VSS. PUT ON HOME CPAP WITH 3L 02 BLEED. HAS BEEN AFEBRILE ENTIRE EVENING. BLOOD CULTURES DRAWN. HAVE BEEN INFUSING MEROPENEM, VANCO, LEVOFLOXACIN, DAPTOMYOCIN. RASH REMAINS ON BLLE BUT HAS NOT CHANGED SINCE ARRIVAL TO FLOOR. HAS DENIED PAIN. TODAY WILL DO MICHEAL, CT OF HEAD. HELD COUMADIN LAST NIGHT, WILL CHECK INR THIS AM. Follow up:
[2017-02-23 08:02] LABS: INR - (THERAPEUTIC) 3.48 (0.92-1.07); PTT 57 SECONDS (25-32)
[2017-02-23 08:10] LABS: CPK 52 IU/L (35-332)
[2017-02-23 08:17] LABS: ALBUMIN 2.6 gm/dL (3.5-5.0); ALK PHOS 67 IU/L (33-138); ALT 31 IU/L (12-78); ANION GAP 16.9 (10.0-19.0); AST 13 IU/L (10-40); BLOOD UREA NITROGEN 11 mg/dL (6-24); CALCIUM 8.2 mg/dL (8.5-10.5); CHLORIDE 110 mMol/L (96-110); CO2 20 mMol/L (22-32); CREATININE 0.8 mg/dL (0.6-1.3); ESTIMATED GFR (MDRD EQUATION) > 60; POTASSIUM 3.9 mMol/L (3.7-5.1); SODIUM 143 mMol/L (135-145); TOTAL BILIRUBIN 0.6 mg/dL (0.0-1.5)
[2017-02-23 08:24] LABS: BASOPHIL % 0.2 %; HEMATOCRIT 39.7 % (37.0-53.0); HEMOGLOBIN 13.4 g/dL (11.0-16.0); IMMATURE GRANULOCYTE # 0.1 K/uL (0.0-0.3); IMMATURE GRANULOCYTE % 0.8 %; LYMPHOCYTE # 0.6 K/uL (0.8-4.0); LYMPHOCYTE % 5.1 %; MCH 31.1 pg (27.0-34.0); MCHC 33.8 gm/dL (32.0-36.5); MCV 92.1 fl (83.0-98.0); MONOCYTE # 0.2 K/uL (0.0-1.0); MONOCYTE % 1.4 %; MPV 11.2 fl (9.4-12.4); NEUTROPHIL # (ANC) 10.3 K/uL (1.4-9.0); NEUTROPHIL % 92.5 %; NRBC % 0 /100WBC (0-0.00); PLATELET COUNT 177 K/uL (150-450); RBC 4.31 M/uL (3.50-5.50); RDW-CV 14.3 % (11.9-14.6); WBC 11.1 K/uL (4.0-11.0)
[2017-02-23] MEDS ORDERED: JANUVIA 100 MG100 MG PO (09:42)
[2017-02-23] MEDS ORDERED: DELTASONE20 MG PO (09:43)
--- NOTE | 2017-02-23 13:53 | NUR ---
Introduced self and care management services to patient, and son at bedside. Lives in [place]. Plans on going home on discharge, denies needs. and son assist him at home as needed. Will follow.
--- NOTE | 2017-02-23 16:12 | NUR ---
Significant Event: ALERT, ORIENTED BUT FORGETFUL. HEAD CT NEGATIVE. VSS, AFEBRILE, ROOM AIR. UP WITH 1 ASSIST, GAITBELT, WALKER. ACCUCHECK ACHS. INTERMITTENT ABX, L)MIDLINE AND L) WRIST WITH NS AT 100 ML/HR. RASH FROM FEET TO UPPER THIGHS. Follow up: COLONOSCOPY TOMORROW, CONSENT SIGNED. NEED HEME OCCULT STOOL TEST X2.
[2017-02-24 01:27] LABS: ANION GAP 14.7 (10.0-19.0); BLOOD UREA NITROGEN 12 mg/dL (6-24); CALCIUM 7.9 mg/dL (8.5-10.5); CHLORIDE 112 mMol/L (96-110); CO2 21 mMol/L (22-32); CPK 98 IU/L (35-332); CREATININE 0.7 mg/dL (0.6-1.3); ESTIMATED GFR (MDRD EQUATION) > 60; MAGNESIUM 1.9 mg/dL (1.8-2.6); POTASSIUM 3.7 mMol/L (3.7-5.1); SODIUM 144 mMol/L (135-145)
--- NOTE | 2017-02-24 03:59 | NUR ---
Significant Event: A&Ox3, forgetful at times. Patient states, "my mind isn't what it used to be". Hematests x3 all negative. Bowel prep started for Colonoscopy in AM. Patient's heart rate began to decreased into high 40s. Asymptomatic. EKG and labs drawn. Supplemented with PO potassium and IV magnesium. Patient will have an echo and repeat EKG this morning. Colonoscopy to be canceled until cardiac becomes more stable. 0300 bowel prep D/C'd. Family notified of changes. All other VSS on room air and CPAP with 2L O2 per home settings. IV ABX. Taking in PO and voiding adequate amounts. Pleasant and cooperative with cares. Follow up: Notify MD if HR<40. Call to cancel colonoscopy this AM.
[2017-02-24 07:02] LABS: BASOPHIL % 0.2 %; HEMATOCRIT 38.2 % (37.0-53.0); HEMOGLOBIN 12.9 g/dL (11.0-16.0); IMMATURE GRANULOCYTE # 0.1 K/uL (0.0-0.3); IMMATURE GRANULOCYTE % 0.6 %; LYMPHOCYTE # 1.1 K/uL (0.8-4.0); LYMPHOCYTE % 8.4 %; MCH 30.9 pg (27.0-34.0); MCHC 33.8 gm/dL (32.0-36.5); MCV 91.4 fl (83.0-98.0); MONOCYTE # 0.5 K/uL (0.0-1.0); MONOCYTE % 4.1 %; MPV 11.1 fl (9.4-12.4); NEUTROPHIL # (ANC) 11.2 K/uL (1.4-9.0); NEUTROPHIL % 86.7 %; NRBC % 0 /100WBC (0-0.00); PLATELET COUNT 177 K/uL (150-450); RBC 4.18 M/uL (3.50-5.50); RDW-CV 14.4 % (11.9-14.6); WBC 12.9 K/uL (4.0-11.0)
[2017-02-24 07:10] LABS: PROTIME 28.8 SECONDS (9.8-11.4)
[2017-02-24 07:15] LABS: INR - (THERAPEUTIC) 2.72 (0.92-1.07)
[2017-02-24 07:19] LABS: ALBUMIN 2.6 gm/dL (3.5-5.0); ALK PHOS 60 IU/L (33-138); ALT 42 IU/L (12-78); ANION GAP 14.1 (10.0-19.0); AST 24 IU/L (10-40); BLOOD UREA NITROGEN 14 mg/dL (6-24); CALCIUM 8.1 mg/dL (8.5-10.5); CHLORIDE 112 mMol/L (96-110); CO2 23 mMol/L (22-32); CREATININE 0.8 mg/dL (0.6-1.3); ESTIMATED GFR (MDRD EQUATION) > 60; POTASSIUM 4.1 mMol/L (3.7-5.1); SODIUM 145 mMol/L (135-145); TOTAL BILIRUBIN 0.5 mg/dL (0.0-1.5); TOTAL PROTEIN 5.7 g/dL (6.0-8.4)
--- NOTE | 2017-02-24 13:43 | NUR ---
Significant Event: Alert, oriented x3 but forgetful. Up with 1 assist, not steady and complaint of lightheaded/dizziness at times, reinforced call light use, family present at bedside. VSS, afebrile, room air. Plans to delay Colonoscopy until Sunday due to heart rate and INR. Cardiology consult today, plans to hold Coumadin, start Lovenox once INR >2, and start Aspirin 81 mg if ok with GI. No changes in appearance of rash.
--- NOTE | 2017-02-25 04:33 | NUR ---
Significant Event: Patient alert and oriented x3. Can have difficulty coming up with specific words. Forgetful at times. SBP 129-159. HR 44-71. All other vital signs stable. On RA during the day. Home CPap on at HS with 2L O2. Patient woke up x3 saying he "stopped breathing and was gasping for air." Stated his CPap wasn't working. RN and RT could not find issue with CPap-felt and heard air coming from mask. Patient refused to wear mask. 2L O2 per NC applied with relief to patient. Patient afraid to go back to sleep. Anxious. Trazodone given per Dr. Colby orders. Patient slept on and off throughout shift. 13 beats of V-Tach at 0020. Dr. Colby notified. NS continues at 100ml/hr to left upper arm midline. Up with 1 assist, gaitbelt, and walker. States dizziness and lightheadedness with ambulation. Calm and cooperative with all cares. Follow up: Colonoscopy on Sunday.
[2017-02-25 05:12] LABS: BASOPHIL % 0.2 %; HEMATOCRIT 38.4 % (37.0-53.0); HEMOGLOBIN 12.9 g/dL (11.0-16.0); IMMATURE GRANULOCYTE # 0.2 K/uL (0.0-0.3); IMMATURE GRANULOCYTE % 1.6 %; LYMPHOCYTE # 1.1 K/uL (0.8-4.0); LYMPHOCYTE % 10.4 %; MCH 31.2 pg (27.0-34.0); MCHC 33.6 gm/dL (32.0-36.5); MCV 92.8 fl (83.0-98.0); MONOCYTE # 0.4 K/uL (0.0-1.0); MONOCYTE % 3.9 %; MPV 11.5 fl (9.4-12.4); NEUTROPHIL # (ANC) 8.7 K/uL (1.4-9.0); NEUTROPHIL % 83.9 %; NRBC % 0 /100WBC (0-0.00); PLATELET COUNT 194 K/uL (150-450); RBC 4.14 M/uL (3.50-5.50); RDW-CV 14.5 % (11.9-14.6); WBC 10.3 K/uL (4.0-11.0)
[2017-02-25 05:17] LABS: INR - (THERAPEUTIC) 2.19 (0.92-1.07); PROTIME 23.2 SECONDS (9.8-11.4)
[2017-02-25 05:26] LABS: ANION GAP 10.4 (10.0-19.0); BLOOD UREA NITROGEN 19 mg/dL (6-24); CALCIUM 8.2 mg/dL (8.5-10.5); CHLORIDE 111 mMol/L (96-110); CO2 24 mMol/L (22-32); CREATININE 0.8 mg/dL (0.6-1.3); ESTIMATED GFR (MDRD EQUATION) > 60; POTASSIUM 4.4 mMol/L (3.7-5.1); SODIUM 141 mMol/L (135-145)
--- NOTE | 2017-02-25 18:48 | NUR ---
Significant Event: ALERT & ORIENTED BUT FORGETFUL. VSS, AFEBRILE, ROOM AIR DURING DAY, CPAP AT NIGHT W/ 3L BLEED. UP WITH 1 ASSIST. ACCUCHECK ACHS. RASH IMPROVED. NS AT 100 ML/HR TO L) MIDLINE, INTERMITTENT ABX. PLEASANT & COOPERATIVE WITH CARES. Follow up: YAYA SUNDAY, MAKE NEED PACEMAKER. START LOVENOX WHEN INR <2. COLONOSCOPY SUNDAY? -LEFT MESSAGE WITH DR. ROBLES TO UPDATE WITH PLANS.
--- NOTE | 2017-02-26 05:08 | NUR ---
Significant Event: Patient alert and oriented x3. Cannot distinguish memories from dreams. Makes confused statements at times. Forgetful. HR 48-88. All other vital signs stable. On RA during the day. CPAP with 2-3L at HS. Slept better this shift. NPO since midnight. Up with 1 assist, gaitbelt, and walker. Patient refuses walker at times. Calm and cooperative with all cares. Follow up: Stress test this morning. Colonoscopy on Sunday.
[2017-02-26 07:20] LABS: HEMOGLOBIN 14.9 g/dL (11.0-16.0); MCH 31.1 pg (27.0-34.0); MCHC 34.7 gm/dL (32.0-36.5); MCV 89.8 fl (83.0-98.0); MPV 11.2 fl (9.4-12.4); PLATELET COUNT 200 K/uL (150-450); RBC 4.79 M/uL (3.50-5.50); RDW-CV 14.2 % (11.9-14.6)
[2017-02-26 07:24] LABS: PROTIME 17.7 SECONDS (9.8-11.4)
[2017-02-26 07:25] LABS: INR - (THERAPEUTIC) 1.68 (0.92-1.07)
[2017-02-26 07:29] LABS: ANION GAP 15.2 (10.0-19.0); BLOOD UREA NITROGEN 18 mg/dL (6-24); CALCIUM 8.3 mg/dL (8.5-10.5); CHLORIDE 108 mMol/L (96-110); CO2 23 mMol/L (22-32); CREATININE 0.8 mg/dL (0.6-1.3); ESTIMATED GFR (MDRD EQUATION) > 60; MAGNESIUM 2.5 mg/dL (1.8-2.6); POTASSIUM 4.2 mMol/L (3.7-5.1); SODIUM 142 mMol/L (135-145)
[2017-02-26 07:50] LABS: ABSOLUTE NEUTROPHIL CT (ANC) 6.5 K/uL (1.4-9.0); BANDED NEUTROPHIL # 0.5 K/uL (0.0-0.1); BANDED NEUTROPHILS % 5 %; LYMPHOCYTE # 1.6 K/uL (0.8-4.0); LYMPHOCYTE % 18 %; MONOCYTE # 0.9 K/uL (0.0-1.0); SEGMENTED NEUTROPHIL % 67 %
--- NOTE | 2017-02-26 15:33 | NUR ---
Significant Event: A/Ox3. [id number]. P-40-70s. Afebrile. Room air. L) UA midline infusing NS at 100ml/hr. Patient is clear liquids. Will start golytely prep at 1800 for AM colonoscopy. Permits signsed Patient had possitive stress test today and they are planning a heart cath Sunday. Up with 1A/walker. Pleasant and cooperative with cares.
--- NOTE | 2017-02-27 04:39 | NUR ---
Significant Event: Patient alert and oriented x3. Makes confused statements at times. Forgetful ati times. HR 40s-70s. All other vital signs stable. RA during the day. 2-3L with home CPAP at night. Last half of bowel prep started at 0300. Results of bowel prep throughout the shift. Lt. upper arm midline continues with NS at 100ml/hr. Up with 1 assist, walker, and gaitbelt. Calm and cooperative with all cares. Follow up: Colonoscopy at 1315. Heart Cath soon?
[2017-02-27 05:29] LABS: HEMATOCRIT 48.3 % (37.0-53.0); HEMOGLOBIN 16.2 g/dL (11.0-16.0); MCH 30.6 pg (27.0-34.0); MCHC 33.5 gm/dL (32.0-36.5); MCV 91.3 fl (83.0-98.0); MPV 10.8 fl (9.4-12.4); RBC 5.29 M/uL (3.50-5.50); RDW-CV 14.2 % (11.9-14.6); WBC 10.5 K/uL (4.0-11.0)
[2017-02-27 05:30] LABS: PLATELET COUNT 256 K/uL (150-450)
[2017-02-27 05:41] LABS: INR - (THERAPEUTIC) 1.46 (0.92-1.07); PROTIME 15.4 SECONDS (9.8-11.4)
[2017-02-27 05:44] LABS: ALBUMIN 3.3 gm/dL (3.5-5.0); BLOOD UREA NITROGEN 16 mg/dL (6-24); CALCIUM 8.4 mg/dL (8.5-10.5); CHLORIDE 105 mMol/L (96-110); CO2 26 mMol/L (22-32); CREATININE 0.9 mg/dL (0.6-1.3); ESTIMATED GFR (MDRD EQUATION) > 60; PHOSPHORUS 2.4 mg/dL (2.5-4.9); SODIUM 140 mMol/L (135-145)
[2017-02-27 07:48] LABS: ABSOLUTE NEUTROPHIL CT (ANC) 7.1 K/uL (1.4-9.0); LYMPHOCYTE # 2.3 K/uL (0.8-4.0); LYMPHOCYTE % 22 %; MONOCYTE # 1.1 K/uL (0.0-1.0); SEGMENTED NEUTROPHIL # 7.1 K/uL (1.4-9.0); SEGMENTED NEUTROPHIL % 68 %
--- NOTE | 2017-02-27 14:17 | NUR ---
A-SCREENED D/T LOS COLONSCOPY TODAY. HEART CATH TOMORROW HT: 67 IN. WT: 85.9 KG. BMI: 29.6 LABS: NA 140, K+ 4.0, GLU 113, BUN 16, HUMAN FACTORS ADVISOR LEAD 0.9, ALB 3.3 MEDS REVIEWED DIET RX:REGULAR. PO INTAKE 75-100% WHEN NOT NPO EST NUTR NEEDS: [id number] KCALS (20-25 KCALS/KG) 69-94 GM PROTEIN (0.8-1.1 GM/KG) 1 ML FLUID/KCAL D-NOT AT NUTRITION RISK; NO NUTRITION DX IDENTIFIED I-CONTINUE W/CURRENT DIET RX. M/E-WILL ASSIST NEEDED
--- NOTE | 2017-02-27 16:27 | NUR ---
Significant Event: VSS AND RA. DENIES PAIN. AFEBRILE. MIDLINE IV D/C'D DUE TO CLOTTED OFF THIS AM AND PIV STARTED TO RT)FA BY ENGRAVING SUPERVISOR. COLONOSCOPY WAS DONE AND BX TAKEN OF CECUM AND RECTUM. IV SALINE LOCKED AND TAKING PO WELL. TO BE NPO P MN FOR HEART CATH IN THE AM WITH DR. OTOOLE AT 1000. FAMILY AT BEDSIDE AND UPDATED ON POC. VOIDS WITH ADEQUATE UOP. Follow up: CONTINUE PLAN OF CARE; START NS AT 0400; PRE-CONTRAST MEDS FOR ALLERGY IN THE AM PRIOR TO HEART CATH.
[2017-02-28 04:56] LABS: BASOPHIL % 0.3 %; HEMATOCRIT 42.8 % (37.0-53.0); HEMOGLOBIN 14.8 g/dL (11.0-16.0); IMMATURE GRANULOCYTE # 0.4 K/uL (0.0-0.3); IMMATURE GRANULOCYTE % 4.5 %; LYMPHOCYTE # 1.2 K/uL (0.8-4.0); LYMPHOCYTE % 12.3 %; MCH 31.2 pg (27.0-34.0); MCHC 34.6 gm/dL (32.0-36.5); MCV 90.3 fl (83.0-98.0); MONOCYTE # 0.5 K/uL (0.0-1.0); MONOCYTE % 4.7 %; MPV 10.9 fl (9.4-12.4); NEUTROPHIL # (ANC) 7.7 K/uL (1.4-9.0); NEUTROPHIL % 78.2 %; NRBC % 0.3 /100WBC (0-0.00); PLATELET COUNT 255 K/uL (150-450); RBC 4.74 M/uL (3.50-5.50); RDW-CV 13.9 % (11.9-14.6); WBC 9.8 K/uL (4.0-11.0)
[2017-02-28 05:04] LABS: INR - (THERAPEUTIC) 1.24 (0.92-1.07)
--- NOTE | 2017-02-28 05:12 | NUR ---
Significant Event: A/O x3. Afebrile. Denies pain. VSS on RA/Cpap at night. SBP 130-160s. HR 70-80s. LS clear/dim. VD x4. NS started @ 0400 running at 100/hr. NPO since midnight for heart cath. Pt slept in chair during the night. Chair alarm on throughout shift. Follow up: heart cath today.
[2017-02-28 05:13] LABS: ALBUMIN 2.7 gm/dL (3.5-5.0); ANION GAP 12.4 (10.0-19.0); BLOOD UREA NITROGEN 18 mg/dL (6-24); CALCIUM 8.2 mg/dL (8.5-10.5); CHLORIDE 104 mMol/L (96-110); CO2 24 mMol/L (22-32); CREATININE 0.7 mg/dL (0.6-1.3); ESTIMATED GFR (MDRD EQUATION) > 60; MAGNESIUM 2.5 mg/dL (1.8-2.6); PHOSPHORUS 3.1 mg/dL (2.5-4.9); POTASSIUM 4.4 mMol/L (3.7-5.1); SODIUM 136 mMol/L (135-145)
--- NOTE | 2017-02-28 10:58 | NUR ---
Significant Event: A/Ox3. [id number]. P-60-70s. Afebrile. Room air. R) wrist infusing NS @ 100ml/hr x 500ml. Patient had R) groin heart cath today with no intervention. Dressing C/D/I no hematoma or eccymosis noted. Patient is on bedrest until 1300.
--- NOTE | 2017-02-28 16:22 | NUR ---
Significant Event: ASSUMED CARES AT 1230.VSS. PATIENT A/OX 3. LUNGS CLEAR, ON ROOM AIR. DID C/O PAIN TO BACK, BUT AFTER WAS OFF BEDREST AND ABLE TO GET UP FELT MUCH BETTER. LAST BM YESTERDAY. IV IN RT FOREARM, NOW SALINE LOCKED. DRESSING TO RT GROIN CATH SITE DRY AND INTACT. UP WITH 1 ASSIST AND WALKER. ACCUCHECKS AC/HS. Follow up: MONITOR SITE. PLAN FOR HOME TMRW WITH EVENT MONITOR.
--- NOTE | 2017-03-01 04:27 | NUR ---
Significant Event: A/0X3. RESTED IN RECLINER. REPOSITIONS SELF. SBA WITH WALKER/ GB TO BR. AFEBRILE. VSS ON RA. HOME CPAP AT HS. IV TO R) FA SL. DENIES PAIN. R) GROIN SOFT. NO S/S OF BRUISING OR HEMATOMA. DRESSING C/D/I. CSM WNL. VOIDS FINE. NO BM THIS SHIFT. D/C MEDS PRINTED AND ON CHART. HOME WITH HEART MONITOR. Follow up: CONTINUE WITH PLAN OF CARE. D/C HOME TODAY WITH HEART MONITOR.
[2017-03-01] MEDS ORDERED: NORVASC2.5 MG PO (11:37)
[2017-03-01] MEDS ORDERED: ASPIRIN (CHILDR81 MG PO (11:38)
[2017-03-01] MEDS ORDERED: LEVAQUIN750 MG PO (11:42)
[2017-03-01] MEDS ORDERED: LOPRESSOR25 MG PO (11:44)
--- NOTE | 2017-03-01 18:49 | NUR ---
d- ok dc i-nurse did teaching on all meds with new ones told, info given, rx given, iv dcd ok, after all teaching done cardivasc.came and got event monitor on pt ok, appts set and card given, teaching done on cath/groin care which looks good r-no more questions, states understanding after many times explain p-ta took pt out to car
== END 2017-03-01 13:15 | disposition disaster alternative care site (69) | DRG 871 ==
LOC: GMED 17:15 → GPCU 22:13
PROVIDERS: Emergency Medicine; Family Medicine; Internal Medicine Interventional Cardiology; ADMIT Internal Medicine
DX: A41.9 Sepsis, unspecified organism (principal); G93.40 Encephalopathy, unspecified; I11.0 Hypertensive heart disease with heart failure; I50.32 Chronic diastolic (congestive) heart failure; F03.90 Unspecified dementia, unspecified severity, without behavioral disturbance, psychotic disturbance, mood disturbance, and anxiety; R00.1 Bradycardia, unspecified; I48.0 Paroxysmal atrial fibrillation; K56.0 Paralytic ileus; Z99.81 Dependence on supplemental oxygen; N39.0 Urinary tract infection, site not specified; R65.20 Severe sepsis without septic shock; I25.10 Atherosclerotic heart disease of native coronary artery without angina pectoris; R21 Rash and other nonspecific skin eruption; E11.9 Type 2 diabetes mellitus without complications; R19.7 Diarrhea, unspecified; R07.89 Other chest pain; B96.1 Klebsiella pneumoniae [K. pneumoniae] as the cause of diseases classified elsewhere; F01.50 Vascular dementia, unspecified severity, without behavioral disturbance, psychotic disturbance, mood disturbance, and anxiety; H40.9 Unspecified glaucoma; I71.4 Abdominal aortic aneurysm, without rupture; T38.3X5A Adverse effect of insulin and oral hypoglycemic [antidiabetic] drugs, initial encounter; G47.33 Obstructive sleep apnea (adult) (pediatric); J45.909 Unspecified asthma, uncomplicated; J44.9 Chronic obstructive pulmonary disease, unspecified; E78.5 Hyperlipidemia, unspecified; M19.90 Unspecified osteoarthritis, unspecified site; R51 Headache; K21.9 Gastro-esophageal reflux disease without esophagitis; Z95.1 Presence of aortocoronary bypass graft; Z95.5 Presence of coronary angioplasty implant and graft; Z96.0 Presence of urogenital implants; I69.311 Memory deficit following cerebral infarction; I69.398 Other sequelae of cerebral infarction; Z79.01 Long term (current) use of anticoagulants
CPT/HCPCS: A9500; C1751; C1760; J0280; J0692; J1200; J1644; J1650; J1956; J2001; J2185; J2250; J2785; J2930; J3010; J3370; J3475; J7030; J7040; J7060

== ENCOUNTER → 2017-04-23 | Outpatient (CLI) | payer MEDICARE, BC ==
[~2017-04-23] MED LIST changes: +CITALOPRAM HBR10 MG PO; +COUMADIN ** IA5 MG PO; +DELTASONE20 MG PO; +JANUVIA 100 MG100 MG PO; +LEVAQUIN750 MG PO; +LOPRESSOR25 MG PO; +NORVASC2.5 MG PO
== END | disposition disaster alternative care site (69) ==
LOC: GRAD 13:43
DX: N20.0 Calculus of kidney (principal); Z90.49 Acquired absence of other specified parts of digestive tract